=== PATIENT | male | born 1955 | race Caucasian/White ===

== ENCOUNTER 2021-08-16 07:00 | Outpatient (CLI) | payer MEDICARE ==
[~2021-08-16] VITALS: Ht 182.9 cm; Wt 95.3 kg
[2021-08-16 07:40] LABS: TOTAL HEMOGLOBIN 17.4 G/dl (14.0-18.0)
[2021-08-16] MEDS ORDERED: albuterol 2.5 MG/3 ML nebule NEB PRN (08:20)
== END 2021-08-16 23:59 | disposition home or self-care (01) ==
LOC: RT 07:00
PROVIDERS: ATTEND Internal Medicine Cardiovascular Disease
DX: J44.9 Chronic obstructive pulmonary disease, unspecified (principal)
CPT/HCPCS: 85018; 94010; 94727; 94729